=== PATIENT | female | born 1965 | race Caucasian/White ===

== ENCOUNTER 2017-05-06 12:30 | Emergency (ER) | payer MEDICAID ==
[~2017-05-06 12:30] MED LIST: CITA10TA4; HALO5AMP3
== END 2017-05-06 12:36 | disposition left against medical advice (07) ==
LOC: ED 12:30
DX: R06.02 Shortness of breath (principal); Z53.21 Procedure and treatment not carried out due to patient leaving prior to being seen by health care provider

== ENCOUNTER 2018-03-16 00:55 | Emergency (ER) | payer MEDICAID ==
[~2018-03-16] VITALS: Ht 160 cm; Wt 75.0 kg
[2018-03-16 00:56] VITALS: BP 107/72
[2018-03-16] MEDS ORDERED: PROP10TA PO (01:17)
[2018-03-16] MEDS ORDERED: LITHIUM (01:18)
[2018-03-16] MEDS ORDERED: HYDR25CA94 PO (01:19)
[2018-03-16 01:32] LABS: BASOPHILS # (AUTO) 0.22 x10^3/uL (0-0.1); BASOPHILS % (AUTO) 2 % (0-1); EOSINOPHILS # (AUTO) 0.13 x10^3/uL (0-0.4); EOSINOPHILS % (AUTO) 1 % (1-7); LYMPHOCYTES # (AUTO) 2.09 x10^3/uL (1-3.4); LYMPHOCYTES % (AUTO) 22 % (22-44); MD NO; MEAN CORPUSCULAR HEMOGLOBIN 27.9 pg (27.0-34.8); MEAN CORPUSCULAR HGB CONC 32.7 g/dL (32.4-35.8); MEAN CORPUSCULAR VOLUME 85.4 fL (80-100); MONOCYTES # (AUTO) 0.61 x10^3/uL (0.2-0.8); MONOCYTES % (AUTO) 6 % (2-9); NEUTROPHILS # (AUTO) 6.67 x10^3/uL (1.8-6.8); NEUTROPHILS % (AUTO) 69 % (42-75); PLATELET COUNT 486 x10^3/uL (130-400); RED BLOOD COUNT 3.78 x10^6/uL (3.82-5.3); RED CELL DISTRIBUTION WIDTH 15.4 % (9.6-15.2)
[2018-03-16 01:39] LABS: ALANINE AMINOTRANSFERASE 14 U/L (12-78); ANION GAP 10 mmol/L (5-15); CALCIUM 9.1 mg/dL (8.5-10.1); CHLORIDE 103 mmol/L (98-107); CREATININE 1.13 mg/dL (0.55-1.02); SALICYLATE LEVEL 1.8 mg/dL (2.8-20.0)
[2018-03-16 01:41] LABS: ACETAMINOPHEN < 2 mcg/mL (10-30); ALKALINE PHOSPHATASE 105 U/L (45-117); BILIRUBIN,TOTAL 0.9 mg/dL (0.2-1.0); TOTAL PROTEIN 7.4 g/dL (6.4-8.2)
== END 2018-03-16 02:27 | disposition home or self-care (01) ==
LOC: ED 01:37
DX: F15.10 Other stimulant abuse, uncomplicated (principal); D64.9 Anemia, unspecified; R45.1 Restlessness and agitation
CPT/HCPCS: 36415; 80053; 80307; 80329; 85025; 99284; G0480

== ENCOUNTER 2019-10-19 03:08 | Emergency (ER) | payer MEDICAID ==
[~2019-10-19 03:08] MED LIST changes: +HYDR25CA94 PO; +LITHIUM; +PROP10TA16 PO
== END 2019-10-19 04:33 | disposition home or self-care (01) ==
LOC: ED 03:52
DX: S16.1XXA Strain of muscle, fascia and tendon at neck level, initial encounter (principal); R19.7 Diarrhea, unspecified; X58.XXXA Exposure to other specified factors, initial encounter; Y93.89 Activity, other specified; Y92.89 Other specified places as the place of occurrence of the external cause; Y99.8 Other external cause status
CPT/HCPCS: 99282

== ENCOUNTER 2020-04-04 12:00 | Day surgery (SDC) | payer MEDICAID ==
[~2020-04-04] VITALS: Ht 170.2 cm; Wt 71.5 kg
[2020-04-04 12:20] VITALS: BP 133/88
[2020-04-04] MEDS ORDERED: LORazepam 2 MG/ML, 1ML ONE (12:23)
[2020-04-04] MEDS ORDERED: VERAPAMIL 2.5 MG/ML, 2ML ONE (12:30)
[2020-04-04] MEDS ORDERED: MIDAZOLAM 1 MG/ML, 5ML ONE (12:30)
[2020-04-04] MEDS ORDERED: FENTANYL PF 100 MCG/2ML ONE (12:30)
[2020-04-04] MEDS ORDERED: TICAGRELOR 90 MG TABLET ONE (12:30)
[2020-04-04] MEDS ORDERED: LIDOCAINE 2%, 20ML ONE (12:31)
[2020-04-04] MEDS ORDERED: BIVALIRUDIN 250 MG ONE (12:31)
[2020-04-04] MEDS ORDERED: HEPARIN 5,000 UNITS/ML, 1ML ONE (12:34)
[2020-04-04 12:35] LABS: BASOPHILS # (AUTO) 0.11 x10^3/uL (0-0.1); BASOPHILS % (AUTO) 1 % (0-1); EOSINOPHILS # (AUTO) 0.14 x10^3/uL (0-0.4); EOSINOPHILS % (AUTO) 1 % (1-7); LYMPHOCYTES % (AUTO) 19 % (22-44); MD NO; MEAN CORPUSCULAR HGB CONC 33.6 g/dL (32.4-35.8); MEAN CORPUSCULAR VOLUME 89.2 fL (80-100); MEAN PLATELET VOLUME 9.7 fL (7.4-10.4); MONOCYTES # (AUTO) 1.28 x10^3/uL (0.2-0.8); MONOCYTES % (AUTO) 9 % (2-9); NEUTROPHILS # (AUTO) 10.03 x10^3/uL (1.8-6.8); NEUTROPHILS % (AUTO) 70 % (42-75); PLATELET COUNT 335 x10^3/uL (130-400); RED BLOOD COUNT 5.06 x10^6/uL (3.82-5.3); RED CELL DISTRIBUTION WIDTH 13.3 % (9.6-15.2)
--- NOTE | 2020-04-04 12:37 | NUR ---
CODE CARDIAC PAGED @ 1216 COOK NIGHT PAGED @ 1217 CALL RETURNED @ 1221 PT LEFT FOR CLAM PICKER @ 1235
[2020-04-04 12:46] LABS: INTERNATIONAL NORMALIZED RATIO 0.97 (0.93-1.1); PROTHROMBIN TIME 10.3 Seconds (9.6-11.5)
[2020-04-04] MEDS ORDERED: ASPIRIN 81 MG TABLET CHEW PO STA (12:46)
[2020-04-04] MEDS ORDERED: ASPIRIN 81 MG TABLET CHEW ONE (12:46)
--- NOTE | 2020-04-04 12:57 | NUR ---
LATE ENTRY FOR 1210, CODE CARDIAC. DR LONGORIA DISCUSSED CATH PROCEDURE WITH PT.. PT INSISTING THAT SHE BE ABLE TO TALK WITH HER MARKET MANAGER BEFORE GOING TO THE SENIOR QUALITY ASSURANCE ANALYST. I CONTACTED JOAQUIN @ [facility], PROJECT RESTART. I THEN GAVE THE PHONE TO PT AND SHE TALKED WITH JOAQUIN. PT AGREED TO GO TO SENIOR QUALITY ASSURANCE ANALYST.
[2020-04-04] MEDS ORDERED: LORazepam 2 MG/ML, 1ML IVPush ONE (13:00)
[2020-04-04] MEDS ORDERED: HEPARIN 5,000 UNITS/ML, 1ML IV ONE ×2 (13:00→14:30)
[2020-04-04] MEDS ORDERED: HEPARIN 5,000 UNITS/ML, 1ML IV PRN (13:00)
[2020-04-04] MEDS ORDERED: HEPARIN 25,000 UNITS/250ML PMX 250 ML IV PRN (13:00)
[2020-04-04] MEDS ORDERED: SODIUM CHLORIDE 0.9% 1,000 ML IV SCH (13:11)
[2020-04-04] MEDS ORDERED: TRAZODONE 50MG TABLET PO PRN (13:30)
[2020-04-04] MEDS ORDERED: POLYETHYLENE GLYCOL 17 GM PACKET PO PRN (13:30)
[2020-04-04] MEDS ORDERED: GABAPENTIN 300 MG CAPSULE PO PRN (13:30)
[2020-04-04] MEDS ORDERED: LABETALOL 5MG/ML, 20ML IVPush PRN (13:30)
[2020-04-04] MEDS ORDERED: ONDANSETRON 2MG/ML, 2ML IVPush PRN (13:30)
[2020-04-04] MEDS ORDERED: MAGNESIUM HYDROXIDE 8%, 30ML UDC PO SCH (13:30)
[2020-04-04] MEDS ORDERED: BUTALB/APAP/CAFFEINE 50MG/325MG/40MG PO PRN (13:30)
[2020-04-04] MEDS ORDERED: ACETAMINOPHEN 325 MG TABLET PO PRN (13:30)
[2020-04-04] MEDS ORDERED: hydrALAzine 20 MG/ML, 1ML IVPush PRN (13:30)
[2020-04-04] MEDS ORDERED: BACLOFEN 10 MG TABLET PO PRN (13:30)
[2020-04-04] MEDS ORDERED: ONDANSETRON ODT 4 MG PO PRN (13:30)
[2020-04-04] MEDS ORDERED: DOCUSATE 100 MG CAPSULE PO PRN (13:30)
[2020-04-04] MEDS ORDERED: GUAIFENESIN/DM 200-20MG, 10ML UDC PO PRN (13:30)
[2020-04-04] MEDS ORDERED: SODIUM CHLORIDE FLUSH 10ML SYR IVF ONE (14:00)
[2020-04-04] MEDS ORDERED: HYDROXYZINE PAMOATE 25MG CAP PO SCH (21:00)
[2020-04-04] MEDS ORDERED: METOPROLOL TARTRATE 25 MG TAB PO SCH (21:00)
[2020-04-04] MEDS ORDERED: ATORVASTATIN 80 MG TABLET PO SCH (21:00)
[2020-04-04] MEDS ORDERED: PROPRANOLOL 10 MG TABLET PO SCH (21:00)
[2020-04-05] MEDS ORDERED: ISOSORBIDE MONONITRATE ER 30 MG TABLET PO SCH ×2 (09:00→13:00)
[2020-04-05] MEDS ORDERED: HYDROXYZINE PAMOATE 25MG CAP PO SCH (13:00)
[2020-04-05] MEDS ORDERED: ATORVASTATIN 80 MG TABLET PO SCH (13:00)
[2020-04-05] MEDS ORDERED: PROPRANOLOL 10 MG TABLET PO SCH (13:00)
[2020-04-05] MEDS ORDERED: METOPROLOL TARTRATE 25 MG TAB PO SCH (13:00)
[2020-04-05] MEDS ORDERED: MAGNESIUM HYDROXIDE 8%, 30ML UDC PO SCH (13:00)
== END 2020-04-04 13:15 | disposition left against medical advice (07) ==
LOC: CACL 12:09 → ED 12:36 → EDIP 12:37 → UNDOADMIN 12:37 → ED 12:39 → EDSTATUS 12:55 → CACL 13:15
PROVIDERS: ATTEND Family Medicine
DX: I24.9 Acute ischemic heart disease, unspecified (principal); Z53.29 Procedure and treatment not carried out because of patient's decision for other reasons; B19.20 Unspecified viral hepatitis C without hepatic coma; F41.9 Anxiety disorder, unspecified; F17.210 Nicotine dependence, cigarettes, uncomplicated; Z91.14 Patient's other noncompliance with medication regimen; Z59.0 Homelessness
CPT/HCPCS: 71045; 80047; 84484; 85025; 85610; 85730; 93005; 93458; 96374; 96375; 99156; 99285; C1769; C1887; C1894; J1644; J2060; J2250; J3010; Q9967; J0583

== ENCOUNTER 2020-04-05 19:26 | Emergency (ER) | payer MEDICAID ==
[~2020-04-05] VITALS: Ht 170.2 cm; Wt 72.7 kg
[2020-04-05 19:58] VITALS: BP 120/80
--- NOTE | 2020-04-05 20:03 | NUR ---
BIB [facility]. PT WAS HERE YESTERDAY AND HAD A CARDIAC STENT PLACED. PT LEFT AMA. TODAY, PT COMPLAINING OF SUDDEN ONSET OF CP. DENIES USING DRUGS OR ETOH. PT WENT TO [facility] TODAY FOR CP AND LEFT AMA. PT STATES "I GOT SCARED AND LEFT". PT WENT TO SLEEP AND AWOKE WITH CP AGAIN. PT PLACED ON GALLEY HAND, VS STABLE. WILL CONTINUE TO MONITOR PT.
--- NOTE | 2020-04-05 20:36 | NUR ---
PT YELLING AT MYSELF AND OTHER STAFF STATING THAT SHE WANTS TO LEAVE AND THAT "I AM OFF MY PSYCH MEDS AND I DON'T WANT TO BOW DOWN TO ANYONE HERE OR BEG FOR ANYTHING". I CALMLY EXPLAIEND THAT SHE DOES NOT HAVE TO BOW DOWN OR BEG FOR ANYTHING AND I ATTEMPTED TO DE-ESCALATE THE PT. I EXPLAINED TO THE PT THAT SHE IS LEAVING AGAINST MEDICAL ADVICE AND THAT I WOULD ADVISE HER TO STAY TO GET A FURTHER EVALUATION ON HER CP. PT YELLING AND STATING THAT SHE DOES NOT WANT TO STAY. I INFORMED THE MD. PT STATES THAT SHE WANTS ME TO TAKE OUT HER IV. I TOOK OUT HER IV AND AGAIN EXPLAINED THAT IT IS IMPORTANT TO CONTINUE HER EVALUATION. PT STATED THAT SHE DOES NOT WANT TO STAY AND STORMED OUT OF THE ROOM. PT REFUSED TO SIGN THE AMA FORM. PT HAS STEADY GAIT AND AMBULATED OUT OF THE ER WITHOUT ASSISTANCE.
== END 2020-04-05 20:42 | disposition left against medical advice (07) ==
LOC: ED 20:15
DX: I20.0 Unstable angina (principal); R07.89 Other chest pain; R94.31 Abnormal electrocardiogram [ECG] [EKG]; F15.129 Other stimulant abuse with intoxication, unspecified; Z72.9 Problem related to lifestyle, unspecified; I25.2 Old myocardial infarction; F17.200 Nicotine dependence, unspecified, uncomplicated
CPT/HCPCS: 71045; 93005; 99283

== ENCOUNTER 2020-05-05 14:05 | Emergency (ER) | payer MEDICAID ==
[~2020-05-05] VITALS: Ht 170.2 cm; Wt 77.7 kg
[2020-05-05 14:09] VITALS: BP 156/88
--- NOTE | 2020-05-05 14:21 | NUR ---
CATERING TRUCK DRIVER: NA X 1
--- NOTE | 2020-05-05 14:28 | NUR ---
EMERY WHEEL MOLDER: PT BACK IN LOBBY FROM BEING OUTSIDE SMOKING. PT TO ROOM AT THIS TIME. NADN PT AMBULATORY WITH STEADY GAIT
[2020-05-05 14:40] LABS: BASOPHILS # (AUTO) 0.05 x10^3/uL (0-0.1); BASOPHILS % (AUTO) 1 % (0-1); EOSINOPHILS # (AUTO) 0.12 x10^3/uL (0-0.4); EOSINOPHILS % (AUTO) 2 % (1-7); LYMPHOCYTES # (AUTO) 1.86 x10^3/uL (1-3.4); LYMPHOCYTES % (AUTO) 28 % (22-44); MD NO; MEAN CORPUSCULAR HEMOGLOBIN 30.3 pg (27.0-34.8); MEAN CORPUSCULAR HGB CONC 33.4 g/dL (32.4-35.8); MEAN CORPUSCULAR VOLUME 90.7 fL (80-100); MEAN PLATELET VOLUME 9.6 fL (7.4-10.4); MONOCYTES # (AUTO) 0.61 x10^3/uL (0.2-0.8); MONOCYTES % (AUTO) 9 % (2-9); NEUTROPHILS # (AUTO) 3.96 x10^3/uL (1.8-6.8); NEUTROPHILS % (AUTO) 60 % (42-75); PLATELET COUNT 256 x10^3/uL (130-400); RED BLOOD COUNT 4.64 x10^6/uL (3.82-5.3); RED CELL DISTRIBUTION WIDTH 13.8 % (9.6-15.2)
[2020-05-05 14:53] LABS: ALANINE AMINOTRANSFERASE 20 U/L (12-78); ALBUMIN 3.9 g/dL (3.4-5.0); ANION GAP 7 mmol/L (5-15); CALCIUM 8.9 mg/dL (8.5-10.1); CHLORIDE 106 mmol/L (98-107); CREATININE 0.95 mg/dL (0.55-1.02)
[2020-05-05 14:56] LABS: ALKALINE PHOSPHATASE 99 U/L (45-117); BILIRUBIN,TOTAL 0.4 mg/dL (0.2-1.0); TOTAL PROTEIN 7.9 g/dL (6.4-8.2)
== END 2020-05-05 14:50 | disposition left against medical advice (07) ==
LOC: ED 14:40
DX: R19.7 Diarrhea, unspecified (principal); Z20.828 Contact with and (suspected) exposure to other viral communicable diseases
CPT/HCPCS: 36415; 71045; 80053; 85025; 99284; U0001

== ENCOUNTER 2020-12-06 11:55 | Emergency (ER) | payer MEDICAID ==
[~2020-12-06] VITALS: Ht 170.2 cm; Wt 89.8 kg
[2020-12-06 11:59] VITALS: BP 125/57
--- NOTE | 2020-12-06 12:25 | NUR ---
THIS RN WENT INTO ROOM 12 TO MEET AND ASSESS PT. PT NOT IN ROOM. NO PERSONAL BELONGINGS IN ROOM.
== END 2020-12-06 12:26 | disposition left against medical advice (07) ==
LOC: ED 12:17
DX: R07.9 Chest pain, unspecified (principal)
CPT/HCPCS: 93005; 99283